=== PATIENT | female | born 1995 | race Caucasian/White ===

== ENCOUNTER 2017-04-24 02:06 | Inpatient (IN) | payer OTHER ==
[~2017-04-24] VITALS: Ht 167.6 cm; Wt 95.3 kg
--- NOTE | ~2017-04-24 | 2DMMODE ---
[facility] [address] [place] [address] 2 D/M-MODE ECHOCARDIOGRAM Name: KAYLEE DEL VALLE Room #: 435-P [facility] IN ..#: [id number] Admission: 04/24/17 Attend Phys: Rene Stallings, Discharge: Date of : 89 Date of Service: 04/25/17 1003 Report #: [id number] THIS REPORT FOR: //name// APPROVED REPORT Study performed: 04/25/2017 07:14:01 EXAM: Comprehensive 2D, Doppler, and color-flow Echocardiogram Patient Location: Echo lab Room #: [facility] Status: routine BSA: 2.02 HR: 66 bpm BP: 108/68 mmHg Rhythm: NSR Other Information Study Quality: Good Indications Syncope Hx: Migranes Echo Enhancing Agent Indication: Rule out Shunt Agent(s) / Amount(s) Used: Agitated Saline 7 cc 2D Dimensions RVDd: 35.44 mm LVEF(%): 63.90 (>50%) IVSd: 8.64 (7-11mm) LVOT Diam: 20.26 (18-24mm) LVDd: 42.55 mm PWd: 10.49 (7-11mm) Ascending Ao: 26.38 (22-36mm) LVDs: 27.88 (25-40mm) Aortic Root: 26.19 mm Chatterjee's LVEF: 63.90 % Volumes Left Atrial Volume (Systole) Single Plane 4CH: 20.94 mL Single Plane 2CH: 28.42 mL LA ESV Index: 13.40 mL/m2 Aortic Valve AoV Peak Chavo.: 1.27 m/s AO Peak Gr.: 6.42 mmHg LVOT Max P.35 mmHg LVOT Max V: 0.92 m/s [facility] [place] [address] 2 D/M-MODE ECHOCARDIOGRAM Name: KAYLEE DEL VALLE Room #: 435-[facility]..#: [id number] Admission: 04/24/17 Attend Phys: Rene tSallings, Discharge: Date of : 89 Date of Service: 04/25/17 1003 Report #: [id number] YANIRA Vmax: 2.33 cm2 Mitral Valve E/A Ratio: 1.7 MV Decel. Time: 244.79 ms MV E Max Chavo.: 0.92 m/s MV A Chavo.: 0.55 m/s MV PHT: 70.99 ms IVRT: 83.04 ms Pulmonary Valve PV Peak Chavo.: 0.99 m/s PV Peak Gr.: 3.95 mmHg Pulmonary Vein P Vein S: 0.48 m/s P Vein A: 0.21 m/s P Vein D: 0.52 m/s P Vein A Dur.: 124.6 msec P Vein S/D Ratio: 0.92 Tricuspid Valve TR Peak Chavo.: 2.37 m/s RAP Estimate: 5.00 mmHg TR Peak Gr.: 22.39 mmHg PA Pressure: 27.00 mmHg Left Ventricle The left ventricle is normal size. There is normal left ventricular wall thickness. The left ventricular systolic function is normal. LVEF is 55-60%. The left ventricular diastolic function is normal. Right Ventricle The right ventricle is normal size. The right ventricular systolic function is normal. Atria The left atrium size is normal. No shunting by contrast bubble injection. The right atrium size is normal. Aortic Valve The aortic valve is normal in structure. No aortic regurgitation is present. There is no aortic valvular stenosis. Mitral Valve The mitral valve is normal in structure. Trace mitral regurgitation. No evidence of mitral valve stenosis. Tricuspid Valve [facility] [address] [place] [address] 2 D/M-MODE ECHOCARDIOGRAM Name: KAYLEE DEL VALLE Room #: 435-P [facility] IN [facility]#: [id number] Admission: 04/24/17 Attend Phys: Rene Stallings, Discharge: Date of : 89 Date of Service: 04/25/17 1003 Report #: [id number] The tricuspid valve is normal in structure. Trace to mild tricuspid regurgitation. Estimated PAP 27 mmHg. Pulmonic Valve The pulmonary valve is normal in structure. There is no pulmonic valvular regurgitation. Great Vessels The aortic root is normal in size. The ascending aorta is normal in size. IVC is normal in size and collapses >50% with inspiration. Pericardium There is no pericardial effusion. <Conclusion> 1. Normal echocardiogram with Doppler 2. No pericardial effusion <ELECTRONICALLY SIGNED> By: Kevin Munoz MD, FACC 04/25/17 1003 1003 1003 Kevin Munoz MD, FACC /INF
--- NOTE | ~2017-04-24 | HC ---
[facility] [place] [address] CONSULTATION Name: KAYLEE DEL VALLE Room #: 435-P [facility] IN ..#: [id number] Admission: 04/24/17 Attend Phys: Rene Stallings DO Discharge: 04/25/17 Date of : 89 Report #: [id number] THIS REPORT FOR: //name// CC: Phillip ADAME physician/PCP DATE OF SERVICE: 04/24/2017 HISTORY OF PRESENT ILLNESS: This is a 22-year-old female patient for whom a neurology consultation was requested because the patient passed out and to evaluate the patient for any neurological etiology for the patient's passing out. The patient gives a history that she has a longstanding history of migraine headache. She saw some doctor in [place], but has not seen anybody recently. This is an intense pain all over the head. She was having that pain and then the roommate noticed that she passed out. She was on the toilet when it happened. It looks like she may have had a seizure activity at that time. She may have been confused after the episode, but quickly returned back to her baseline. REVIEW OF SYSTEMS: Indicates that this patient may have passed out before, but she does not remember any episode with a seizure activity. She was having what looks like bradycardia when they were drawing even the blood in this patient. She does have a history of migraine and mother also suffers from migraine. Her periods have always been irregular. She saw a electron tube assembler long time ago, but has not seen one recently. She is feeling better this morning and feels close to her baseline. She denies any visual, ENT problems or any chest pain, respiratory difficulty, musculoskeletal, constitutional, dermatological, hematological, psychiatric, throat, allergic symptom associated with present symptomatology. Her 14-point review of systems is pretty much noncontributory. PAST MEDICAL HISTORY: Positive for migraine headache. FAMILY HISTORY: Positive for migraine headache. SOCIAL HISTORY: She drinks alcohol, but only occasionally. PHYSICAL EXAMINATION: NEUROLOGIC: Indicate that the patient is alert, responsive, able to follow simple and complex command. Her speech, concentration, fund of knowledge and memory are at her baseline. Cranial nerve examination 2-12 is unremarkable. I could not have a very good look at the patient's fundus. Neuromuscular examination looks symmetrical. She has no meningeal sign. She is a well-built individual who is moderately obese. Pulses are palpable. She has no edema, cyanosis or jaundice. [address] [address] CONSULTATION Name: KAYLEE DEL VALLE Room #: 435-P [facility] IN [facility]#: [id number] Admission: 04/24/17 Attend Phys: Rene Stallings DO Discharge: 04/25/17 Date of : 89 Report #: [id number] CARDIAC: Examinations appear unremarkable. ABDOMEN: Examination is unremarkable. LUNGS: No respiratory difficulty or rhonchi. VITAL SIGNS: Blood pressure is 103/66, respirations 16, pulse is 62, temperature is 98.1. She did have a CT head and CT angio, which was reviewed and was unremarkable. Blood count indicates slightly increased white count. IMPRESSION: 1. It looks like this patient had a vasovagal spell and seizure was secondary to that. This is because she becomes bradycardic even when the blood is drawn. I will suggest cardiology consult to evaluate that. 2. Chronic migraine and that needs to be addressed. 3. She needs a good ophthalmology examination to make sure there is no ophthalmology cause or contribution to her symptoms. No relations liaison comes here and that may have to be done as an outpatient. RECOMMENDATIONS: 1. MRI of the brain. 2. She may need further evaluation of pituitary gland by an fertilizer supervisor. 3. We will get an EEG done. 4. She has difficult time going on some control methods or trying any medications like Topamax, it is not advisable in this patient, but if she sees a electron tube assembler and fertilizer supervisor and if she can be on effective contraception that can be considered because her life appeared to have been pretty significantly affected with this. <ELECTRONICALLY SIGNED> By: Wili Rowan MD 04/27/17 2134 [id number] Wili Rowan MD /nt
--- NOTE | ~2017-04-24 | EEG ---
[facility] [place] [address] ELECTROENCEPHALOGRAM Name: KAYLEE DEL VALLE Room #: 435-P [facility] IN M.R.#: [id number] Admission: 04/24/17 Attend Phys: Rene Stallings DO Discharge: Date of : 89 Report #: [id number] THIS REPORT FOR: //name// CC: Phillip ADAME physician/PCP DATE OF SERVICE: 04/24/2017 This patient is being evaluated for possibility of seizure. EEG was done by placing the electrodes by standard 10-20 system of electrode placement. Both referential and sequential montages were used for recording. Background activity in this patient's EEG is about 11 Hz and 40 microvolt. This is a very well formed background activity. This background activity is symmetrical. Photic stimulation is unremarkable. The patient went to sleep repeatedly and that was associated with bilaterally symmetrical K-complexes, vertex sharp waves and sleep spindles. Throughout the records, no active epileptiform activity was noticed. IMPRESSION: This patient's EEG does not demonstrate any clear-cut epileptiform activity. It might be mentioned that EEG can be normal in the patient with a seizure disorder. If clinical doubt continued to exist, further workup with prolonged EEG monitoring may be done. Thank you very much for this referral. this addendum is being admitted at the time of signing this report. I reviewed this EEG multiple times. Initially I thouh the activity was related to sleep. However some of the activities are frontal and not centrally predominant. That will raise the possibility of seizures arising from that location. I discussed the situation with the patient and recommended that she goes on anticonvulsant. She declined that. She is competent to make her decision and I discussed all aspect of that with her and my plan was to put her on anticonvulsant until she sees epileptologist and if he did not think it was necessary she can come off that. She is pretty adamant she will not do that but she will see epileptologist as soon as possible and take strict seizure precautions and not drive until she sees epileptologist and stay with somebody so that she can get help in case she has any further spells. She will come to emergency room if she has any more dizziness or seizure-like activity. <ELECTRONICALLY SIGNED> By: Wili Rowan MD 04/25/17 1034 36 44 Wili Rowan MD /nt
--- NOTE | ~2017-04-24 | EKG ---
[address] [address] ELECTROCARDIOGRAM REPORT Name: KAYLEE DEL VALLE Room #: 439-P [facility] IN .R.#: [id number] Admission: 04/24/17 Attend Phys: Phillip Sims MD Discharge: Date of : 89 Report #: [id number] THIS REPORT FOR: //name// [facility] ED Test Date: 2017-04-24 Test Time: 02:42:35 Pat Name: KAYLEE DEL VALLE Department: Room: 439 Gender: F Vocal Performer: [facility] : 1995 Requested By: Anmol Arndt Order Number: [id number] MD: Kevin Munoz Measurements Intervals [place] Rate: 49 P: 16 AR: 153 QRS: 36 QRSD: 86 T: 26 QT: 414 QTc: 374 Interpretive Statements Sinus bradycardia Otherwise no significant abnormality No previous ECG available for comparison Electronically Signed On 04-24-2017 16:43:11 CDT by Kevin Munoz [email or web address] <ELECTRONICALLY SIGNED> By: Kevin Munoz MD, [facility] 04/24/17 1643 0242 0242 Kevin Munoz MD, FACC /EPI
[2017-04-24 02:10] VITALS: BP 114/72
[2017-04-24] MEDS ORDERED: NOHOMEMEDICATIONS (02:24)
[2017-04-24 03:11] LABS: ABSOLUTE NEUTROPHILS 6.1 thou/uL (1.4-8.2); BASOPHILS 0.3 % (0.0-2.0); HEMATOCRIT 39.9 % (37.0-47.0); HEMOGLOBIN 13.7 gm/dL (12.0-15.0); LYMPHOCYTES 39.1 % (24.0-44.0); MCH 29.6 pg (26.0-34.0); MCHC 34.3 g/dL (28.0-37.0); MCV 86.5 fL (80.0-100.0); MONOCYTES 5.7 % (1.0-8.0); PLATELET COUNT 278 thou/uL (150-400); POLYS 53.9 % (36.0-66.0); RBC 4.61 mil/uL (4.20-5.00); RDW 12.5 % (10.5-14.5); WBC 11.3 thou/uL (4.0-11.0)
[2017-04-24 03:15] LABS: CALCIUM 9.2 mg/dL (8.5-10.1); CREATININE 0.7 mg/dL (0.6-1.0); POTASSIUM 3.5 mmol/L (3.5-5.1)
[2017-04-24 04:07] LABS: URINE BILIRUBIN NEGATIVE (Negative); URINE BLOOD NEGATIVE (Negative); URINE CLARITY CLEAR; URINE COLOR YELLOW; URINE GLUCOSE-RANDOM* 1+ (Negative); URINE KETONES NEGATIVE (Negative); URINE LEUKOCYTES-REFLEX NEGATIVE (Negative); URINE NITRITE-REFLEX NEGATIVE (Negative); URINE PROTEIN (DIPSTICK) NEGATIVE (Negative); URINE SPECIFIC GRAVITY 1.025 (1.005-1.035); URINE UROBILINOGEN 0.2 E.U./dl (0.2-1.0)
[2017-04-24 04:15] LABS: AMP/METHAMP Negative (Negative); BARBITURATES Negative (Negative); BENZODIAZEPINES Negative (Negative); COCAINE Negative (Negative); METHADONE Negative (Negative); OPIATES Negative (Negative); PCP Negative (Negative)
[2017-04-24 05:14] VITALS: BP 126/83
[2017-04-24 07:45] VITALS: BP 103/66
[2017-04-24 10:13] LABS: CHOLESTEROL 177 mg/dL (<200); HDL CHOLESTEROL 40 mg/dL (>40); LDL CHOLESTEROL 108 mg/dL (<100); TC:HDL 4.4 Ratio (Not establshd); TRIGLYCERIDE 149 mg/dL (<150); VLDL 30 mg/dL (<40)
[2017-04-24 10:41] LABS: TSH 3.421 uIU/mL (0.358-3.740)
[2017-04-24 15:29] VITALS: BP 103/69
[2017-04-24 21:12] LABS: PROLACTIN 7.3 ng/mL (4.8-23.3)
[2017-04-24 22:06] LABS: CRP HIGHLY SENSITIVE 1.63 mg/L (0.00-3.00)
[2017-04-24 22:08] VITALS: BP 121/75
[2017-04-25 04:18] VITALS: BP 108/68
[2017-04-25 06:15] LABS: ABSOLUTE NEUTROPHILS 5.6 thou/uL (1.4-8.2); BASOPHILS 0.4 % (0.0-2.0); EOSINOPHILS 1.1 % (0.0-3.0); HEMATOCRIT 41.7 % (37.0-47.0); HEMOGLOBIN 13.9 gm/dL (12.0-15.0); LYMPHOCYTES 39.8 % (24.0-44.0); MCH 29.3 pg (26.0-34.0); MCHC 33.4 g/dL (28.0-37.0); MCV 87.6 fL (80.0-100.0); MONOCYTES 6.1 % (1.0-8.0); PLATELET COUNT 280 thou/uL (150-400); POLYS 52.6 % (36.0-66.0); RBC 4.76 mil/uL (4.20-5.00); RDW 12.6 % (10.5-14.5); WBC 10.6 thou/uL (4.0-11.0)
[2017-04-25 06:39] LABS: CALCIUM 9.3 mg/dL (8.5-10.1); CREATININE 0.6 mg/dL (0.6-1.0); POTASSIUM 3.7 mmol/L (3.5-5.1)
[2017-04-25 10:00] VITALS: BP 122/77
[2017-04-25 10:30] VITALS: BP 122/77
== END 2017-04-25 11:00 | disposition home or self-care (01) | DRG 101 ==
LOC: ER 02:06 → 4S 04:34 → EROBS 04:34 → 4S 05:32
PROVIDERS: Emergency Medicine; Family Medicine; Psychiatry & Neurology Neuromuscular Medicine
DX: R56.9 Unspecified convulsions (principal); R55 Syncope and collapse; G43.909 Migraine, unspecified, not intractable, without status migrainosus; J45.909 Unspecified asthma, uncomplicated; F12.90 Cannabis use, unspecified, uncomplicated; F41.9 Anxiety disorder, unspecified; F32.9 Major depressive disorder, single episode, unspecified; G47.00 Insomnia, unspecified; Z83.3 Family history of diabetes mellitus; Z82.0 Family history of epilepsy and other diseases of the nervous system; Z28.21 Immunization not carried out because of patient refusal
CPT/HCPCS: 10100